=== PATIENT | female | born 1970 | race Caucasian/White ===

== ENCOUNTER → 2018-06-08 21:32 | Outpatient (CLI) | payer MEDICAID, SELFPAY ==
[2018-06-09 11:04] LABS: Absolute Lymphocyte Count 2.18 X10^3/ul (0.83-4.51); Absolute Neutrophil Count 4.2 X10^3/uL (2.0-7.7); Basophil# 0.01 X10^3/uL; Basophil% 0.1 % (0-1); Eosinophil# 0.32 X10^3/uL; Eosinophils% 4.4 % (0-5); Hematocrit 37.7 % (37-47); Hemoglobin 11.7 g/dl (12.0-15.0); Lymphocyte # 2.18 X10^3/ul (4.0); Lymphocyte % 30.2 % (19-41); Mean Corpuscular Hgb 29.7 pg (27.0-32.0); Mean Corpuscular Volume 95.7 fL (81-99); Mean Platelet Vol. 10.1 fl (6.2-12.0); Monocyte# 0.52 X10^3/uL; Monocyte% 7.2 % (0-10); Neutrophil # 4.18 X10^3/uL (2.7-7.7); Neutrophil % 58.1 % (47-70); Platelet Count 260 K/mm3 (150-450); RBC Distribution Width CV 13.6 % (11.6-14.6); RBC Distribution Width SD 47.7 fl (35.1-43.9); Red Blood Count 3.94 M/mm3 (4.2-5.4); White Blood Count 7.2 K/mm3 (4.4-11.0)
[2018-06-09 11:09] LABS: POSITIVE COUNT NO; POSITIVE DIFFERENTIAL NO; POSITIVE MORPHOLOGY NO
[2018-06-09 11:31] LABS: AST(SGOT) 33 U/L (15-37); Alanine Aminotransfer ALT/SGPT 37 U/L (13-56); Alkaline Phosphatase 69 U/L (45-117); Anion Gap 9 (5-15); BUN 16 mg/dL (7-18); BUN/Creat Ratio 18.4 RATIO (10-20); Calcium,Total 8.8 mg/dL (8.5-10.1); Chloride 106 mmol/L (98-107); Cholesterol 104 mg/dL (200); Creatinine, Serum 0.87 mg/dL (0.55-1.02); EST Glomerular Filtration Rate 75 mL/min (>60); Est Glom Filt Rate - Afr Amer 90 mL/min (>60); Follicle Stimulating Hormone 4.5 mIU/mL; Free T3 2.9 pg/mL (2.18-3.98); Glucose 71 mg/dL (74-106); High Density Lipoprotein 39 mg/dL; Luteinizing Hormone 7.2 mIU/mL; Magnesium 2.1 mg/dL (1.6-2.6); Potassium 3.9 mmol/L (3.5-5.1); Sodium Level 140 mmol/L (136-145); Triglycerides 133 mg/dL; Very Low Density Lipoprotein 27 mg/dL (5-40)
[2018-06-11 10:20] LABS: Vitamin B12 1493 pg/mL (211-911); Vitamin D,25 Hydroxy 39.4 ng/mL (29.95-100.01)
[2018-06-11 14:55] LABS: EBV Acute VCA IgM < 36.0 U/mL (0.0-35.9); EBV Early Antigen IgG 48.2 U/mL (0.0-8.9)
== END ==
PROVIDERS: Visit Provider Nurse Practitioner
DX: R53.83 Other fatigue (principal); E55.9 Vitamin D deficiency, unspecified; R53.81 Other malaise; N92.4 Excessive bleeding in the premenopausal period; R63.5 Abnormal weight gain; R60.0 Localized edema
CPT/HCPCS: 80053; 80061; 82306; 82607; 83001; 83002; 83735; 84436; 84443; 84481; 85025; 86663; 86664; 86665

== ENCOUNTER → 2018-06-28 22:46 | Outpatient (CLI) | payer MEDICAID, SELFPAY | PROVIDERS: Visit Provider Nurse Practitioner | DX: M54.5 Low back pain (principal) | CPT/HCPCS: 87086; 87088 ==